=== PATIENT | female | born 1970 | race African-American/Black ===

== ENCOUNTER 2017-08-15 17:46 | Emergency (ER) | payer OTHER ==
[~2017-08-15] VITALS: Ht 165.1 cm; Wt 136.1 kg
[2017-08-15 18:07] LABS: URINE BLOOD TRACE (Negative); URINE CLARITY CLEAR; URINE COLOR YELLOW; URINE GLUCOSE-RANDOM* NEGATIVE (Negative); URINE KETONES NEGATIVE (Negative); URINE LEUKOCYTES TRACE (Negative); URINE NITRITE POSITIVE (Negative); URINE PROTEIN (DIPSTICK) TRACE (Negative); URINE SPECIFIC GRAVITY 1.025 (1.005-1.035); URINE UROBILINOGEN 0.2 E.U./dl (0.2-1.0)
[2017-08-15 18:10] LABS: ICTOTEST (BILI CONFIRMATORY) Negative (Negative); URINE BILIRUBIN NEGATIVE (Negative)
[2017-08-15 18:14] LABS: SQUAMOUS >10 Many /LPF (0-3)
[2017-08-15 18:15] LABS: BACTERIA >30 Many /HPF (None Seen); CASTS None Seen /LPF (None Seen); CRYSTALS None Seen /LPF (None Seen); URINE RBC 0-2 Rare /HPF (0-2); URINE WBC >25 Many /HPF (0-5)
[2017-08-15 18:16] LABS: MUCUS 4-6 Moderate strn/LPF (None Seen)
[2017-08-15] MEDS ORDERED: PROTONIX40 M1 PO (18:40)
[2017-08-15] MEDS ORDERED: NORVASC5 MG PO (18:41)
[2017-08-15] MEDS ORDERED: NAPROSYN500 MG PO (18:50)
[2017-08-15] MEDS ORDERED: BACTRIM DS TAB1 EACH PO (18:50)
[2017-08-15] MEDS ORDERED: PYRIDIUM200 MG PO (18:54)
[2017-08-15 19:14] LABS: AMP/METHAMP Negative (Negative); BARBITURATES Negative (Negative); BENZODIAZEPINES Negative (Negative); COCAINE POSITIVE (Negative); METHADONE Negative (Negative); OPIATES Negative (Negative); PCP Negative (Negative)
== END 2017-08-15 18:46 | disposition home or self-care (01) ==
LOC: ER 17:46
PROVIDERS: Emergency Medicine
DX: M54.9 Dorsalgia, unspecified (principal); G89.29 Other chronic pain; N39.0 Urinary tract infection, site not specified; I10 Essential (primary) hypertension

== ENCOUNTER 2018-08-28 01:55 | Emergency (ER) | payer OTHER ==
[~2018-08-28] VITALS: Ht 165.1 cm; Wt 72.6 kg
[~2018-08-28 01:55] MED LIST: BACTRIM DS TAB1 EACH PO; NAPROSYN500 MG PO; NORVASC5 MG PO; PROTONIX40 M1 PO; PYRIDIUM200 MG PO
[2018-08-28 02:01] VITALS: BP 125/107
[2018-08-28] MEDS ORDERED: SEROQUEL 25 MG25 M1 PO (02:07)
[2018-08-28] MEDS ORDERED: TRAZODONE HCL50 MG (02:07)
[2018-08-28] MEDS ORDERED: CYCLOBENZAPRINE5 MG PO (02:08)
[2018-08-28] MEDS ORDERED: KEFLEX500 M1 PO (03:17)
[2018-08-28] MEDS ORDERED: ACETAMINOPHEN-1 EAC1 PO (03:17)
== END 2018-08-28 03:39 | disposition home or self-care (01) ==
LOC: ER 01:55
DX: S61.012A Laceration without foreign body of left thumb without damage to nail, initial encounter (principal); I10 Essential (primary) hypertension; F17.210 Nicotine dependence, cigarettes, uncomplicated; Z88.0 Allergy status to penicillin; W26.0XXA Contact with knife, initial encounter; Y93.89 Activity, other specified; Y92.89 Other specified places as the place of occurrence of the external cause; Y99.8 Other external cause status

== ENCOUNTER 2019-08-02 16:46 | Emergency (ER) | payer OTHER ==
[~2019-08-02] VITALS: Ht 165.1 cm; Wt 117.9 kg
[~2019-08-02 16:46] MED LIST changes: +ACETAMINOPHEN-1 EAC1 PO; +CYCLOBENZAPRINE5 MG PO; +KEFLEX500 M1 PO; +SEROQUEL 25 MG25 M1 PO; +TRAZODONE HCL50 MG
[2019-08-02 17:00] VITALS: BP 127/96
[2019-08-02] MEDS ORDERED: FLEXERIL PO (17:15)
[2019-08-02] MEDS ORDERED: PREDNISONE 10 M10 MG PO (17:16)
== END 2019-08-02 17:34 | disposition home or self-care (01) ==
LOC: ER 16:46
DX: M54.12 Radiculopathy, cervical region (principal); G89.29 Other chronic pain; I10 Essential (primary) hypertension; F17.210 Nicotine dependence, cigarettes, uncomplicated; Z98.51 Tubal ligation status; Z88.0 Allergy status to penicillin